=== PATIENT | female | born 1950 | race Caucasian/White ===

== ENCOUNTER 2023-06-08 13:04 | Day surgery (SDC) | payer MEDICARE ==
--- NOTE | 2023-06-07 13:02 | HP ---
HISTORY AND PHYSICAL DATE OF SURGERY: 06/08/2023. HISTORY OF PRESENT ILLNESS: Nicole Fitzgerald is a 72-year-old patient, who was seen with symptomatic left knee osteoarthritis. We discussed the options regarding treatment. She elected to proceed with left total knee arthroplasty. Consent obtained. Medical clearance was provided by Dr. Jose G Grijalva. PAST MEDICAL HISTORY: Hypertension and hypothyroidism. PAST SURGICAL HISTORY: Right total knee arthroplasty, left shoulder arthroscopy, and tonsillectomy. DAILY MEDICATIONS: 1. Levothyroxine. 2. Losartan. 3. Pantoprazole. ALLERGIES: None. SOCIAL HISTORY: She denies tobacco use. PHYSICAL EVALUATION OF THE LEFT KNEE: Range of motion is 0 to 125 degrees. Tenderness along the medial and lateral joint lines. Crepitance along the lateral patellofemoral compartments with range of motion. Pain with patellofemoral compression. Ligaments are stable. Hip rotation is without pain. Distal neurovascular exam is intact. IMAGING STUDIES: Left knee radiographs revealed severe osteoarthritis. IMPRESSION: 1. Left knee osteoarthritis. 2. Hypertension. 3. Hypothyroidism. PLAN: Left total knee arthroplasty. MMODL / IJN: [id number] /
[~2023-06-08 13:04] MED LIST: HYDROmorphone 0.5 MG/0.5 ML SYRINGE IVP PRN; LIDOCAINE 1% (10MG/ML) FOR IV START INTRADERMA PRN; TRANEXAMIC 1,000 MG/100ML-NACL 1,000 MG in SALINE 1 100ML.BAG IVPB PRN
[2023-06-08] MEDS: LACTATED RINGERS 1,000 ML IV SCH ×2 (13:19→18:59)
[2023-06-08] MEDS: ACETAMINOPHEN TAB 500 MG TAB PO PRN (13:56)
[2023-06-08] MEDS: MELOXICAM 7.5 MG TAB PO PRN (13:56)
[2023-06-08] MEDS: DEXAMETHASONE SOD PHOSPHATE 4 MG/ML 1 ML VIAL IVP ONE (13:56)
[2023-06-08] MEDS: ONDANSETRON 4 MG/2 ML VIAL IVP ONE (13:56)
[2023-06-08] MEDS: MIDAZOLAM 2 MG/2 ML VIAL IVP ONE (14:25)
[2023-06-08] MEDS ORDERED: PROPOFOL 10 MG/ML 20 ML VIAL IV ONE (15:11)
[2023-06-08] MEDS ORDERED: ROPIVACAINE 5 MG/ML 30 ML VIAL ONE (15:11)
[2023-06-08] MEDS ORDERED: LIDOCAINE 1% INJ 10MG/ML (20 ML MDV) ONE (15:11)
[2023-06-08] MEDS ORDERED: ePHEDrine 50 MG/ML 1 ML VIAL ONE (15:11)
[2023-06-08] MEDS ORDERED: TRANEXAMIC 1,000 MG/100ML-NACL PREMIX BAG ONE (15:11)
[2023-06-08] MEDS ORDERED: DEXAMETHASONE SOD PHOSPHATE 4 MG/ML 1 ML VIAL ONE (15:11)
[2023-06-08] MEDS ORDERED: MIDAZOLAM 2 MG/2 ML VIAL ONE (15:11)
[2023-06-08] MEDS: ceFAZolin 1,000 MG in SODIUM CHLORIDE 0.9% 1,000 ML IRRIGATION ONE (15:38)
[2023-06-08] MEDS: LACTATED RINGERS 1,000 ML IV ONE (16:05)
[2023-06-08] MEDS ORDERED: ONDANSETRON 4 MG/2 ML VIAL IVP PRN (16:55)
[2023-06-08] MEDS ORDERED: HYDROmorphone 0.5 MG/0.5 ML SYRINGE IVP PRN ×2 (16:55)
[2023-06-08] MEDS ORDERED: HYDROcodone/APAP 5-325MG 1 EACH TAB PO PRN (16:55)
[2023-06-08] MEDS ORDERED: NALOXONE 0.4 MG/ML 1 ML VIAL IV PRN (16:55)
--- NOTE | 2023-06-08 16:55 | P.OP ---
Date of Procedure: 06/08/23 Preoperative Diagnosis: Left knee osteoarthritis Postoperative Diagnosis: Left knee osteoarthritis Procedure(s) Performed: Left total knee arthroplasty Implants: 1. DePuy attune size 6 narrow left cruciate retaining cemented femur 2. DePuy attune size 5 fixed-bearing cemented tibial baseplate 3. DePuy attune size 6 fixed-bearing cruciate retaining 5 mm polyethylene tibial insert 4. DePuy attune 38 mm all polyethylene cemented patella Anesthesia: regional (Adductor canal catheter, iPAQ block), spinal Surgeon: Tolu Lozano Filling Technician #1: Wojciech Araiza Estimated Blood Loss (ml): 40 Pathology: none sent Condition: stable Disposition: PACU Indications for Procedure: 72-year-old patient seen with symptomatic left knee osteoarthritis. After treatment options were discussed, she elected to proceed with total knee arthr oplasty. Operative Findings: See description of procedure Description of Procedure: Patient was taken to the operative suite after having an adductor canal catheter placed by the department of anesthesia. Patient underwent a spinal anesthetic by the department of anesthesia. Patient was given preoperative IV intake antibiotics and TXA. A well-padded tourniquet was placed about the left lower extremity. The lower extremity was then prepped and draped in the normal sterile orthopedic fashion. The extremity was elevated, a tourniquet was in sufflated to 300. A standard anterior incision was made sharply through skin. Dissection was taken down through the subcutaneous soft tissues down to the extensor mechanism. A medial arthrotomy was performed, patella was everted and knee was flexed. There was advanced osteoarthritis noted. I introduced my distal intramedullary femoral drill. I then introduced the distal femoral cutting jig. Wojciech MCINTOSH secured the cutting jig with 2 pins. I held retractors in position while Wojciech MCINTOSH performed the distal femoral resection through the guide area we now removed her distal femoral cutting guide. We now placed our 4-in-1 femoral cutting block and positioned and it was secured with 2 pins by Wojciech MCINTOSH while I held the block in position. The distal femoral finishing was now completed. A proximal tibial cutting guide was positioned. I held the guide in the appropriate position with both hands while Wojciech MCINTOSH inserted stabilizing pins into the guide. Proximal tibial cut was made. We now placed a trial femoral component into position, along with an appropriate size tibial tray and insert. We now took the knee through range of motion and had full extension good flexion and good overall soft tissue balance noted. The patella was everted and stabilized with 2 towel clips held by Wojciech MCINTOSH while I performed a flush with patellar quad tendon utilizing a fresh sawblade. We templated the patella, appropriate drill holes were made. An appropriate trial patella was positioned, knee was taken through full range of motion with the patella tracking very nicely. The trial patella was removed. Drill holes were made through the femoral component. All trial components were removed after marking off the appropriate rotation of the tibia. Retractors we re now positioned along the proximal tibia. An appropriate keel punch was made with the appropriate size tibial guide by myself on Wojciech MCINTOSH assisted by holding retractors. At this point appropriate size implants were chosen and opened. The joint was irrigated copiously with pulse lavage mechanical irrigation. The wound was irrigated with pulse lavage mechanical irrigation. We mixed antibiotic methylmethacrylate. We placed the knee into flexion. We placed multiple retractors assisted by Wojciech MCINTOSH to expose the proximal tibia. Once the methyl methacrylate was ready, the tibial component was cemented into place removing any excess methylmethacrylate form by both myself and Wojciech MCINTOSH. The femoral component was cemented into place removing the removing any excess methylmethacrylate performed by both myself and Wojciech MCINTOSH. We then inserted the appropriate size polyethylene tibial insert. We made sure that it was locked into position. We took the knee into full extension, and then back in a flexion making sure we had removed any excess methylmethacrylate. The patellar component was then cemented down and secured with clamp. Excess methylmethacrylate removed. We kept the knee in full extension, patellar clamp in position until methylmethacrylate had hardened. Once it had hardened the patellar clamp was removed. The knee was taken through full range of motion. The patella tracked nicely. There was good soft tissue balancing. The tourniquet was now released. Additional hemostasis was achieved via electrocautery. A second gram of TXA was given. The wound again was irrigated with pulse lavage mechanical irrigation. The extensor mechanism was repaired with Ethibond suture. We checked the repair with range of motion and it was stable. The subcutaneous soft tissues were repaired with Vicryl in layers. The skin was approximated with pernio/Dermabond. Sterile dressings were applied followed by loose web roll and Poncho bandage. The patient was transferred to a bed, and taken to recovery in stable and satisfactory condition. Wojciech MCINTOSH assisted with this complex procedure.
[2023-06-08] MEDS: ROPIVACAINE 1,100 MG, SODIUM CHLORIDE 0.9% 500 ML 330 ML, EMPTY PAIN BALL 1 EACH MISCELLANE PRN (17:45)
--- NOTE | 2023-06-08 17:48 | XR ---
EXAMINATION TYPE: XR knee limited LT DATE OF EXAM: 06/08/2023 5:32 PM CLINICAL INDICATION:Female, 72 years old with history of Evaluation for Postop abnormality and alignm ent; [facility] COMPARISON: None. TECHNIQUE: XR knee limited LT; examined in Frontal, lateral and oblique projections. FINDINGS: Status post total knee arthroplasty changes with hardware in appropriate alignment and in tact. No evidence of fracture. Subcutaneous lucencies and lucencies within the joint consistent with surgical changes. IMPRESSION: Status post total knee arthroplasty changes with hardware intact and appropriate alignment. No fractu res identified.
[2023-06-08] MEDS: HYDROmorphone 0.5 MG/0.5 ML SYRINGE IVP PRN (18:55)
[2023-06-08] MEDS: ENOXAPARIN 30 MG/0.3 ML SYRINGE SQ SCH (19:44)
[2023-06-08] MEDS: SENNOSIDES-DOCUSATE SODIUM 1 EACH TAB PO SCH (19:44)
[2023-06-08] MEDS: HYDROcodone/APAP 7.5-325MG 1 EACH TAB PO PRN (20:47)
[2023-06-09 08:03] VITALS: BP 128/72; PULSE 83; RESP 18; TEMP 97.5
[2023-06-09] MEDS: LOSARTAN 50 MG TAB PO SCH (09:20)
[2023-06-09] MEDS: PANTOPRAZOLE 40 MG/10 ML VIAL IVP SCH (09:21)
[2023-06-09] MEDS: LACTOBACILLUS ACIDOPHILUS/PECT 1 EACH CAPSULE PO SCH (09:21)
--- NOTE | 2023-06-09 10:04 | P.DS ---
Providers Date of admission: 06/08/2023 Expected date of discharge: 06/09/23 Attending physician: Tolu Lozano Consults: 06/08/23 16:55 Consult Physician Routine Consulting Provider: Jose G Grijalva Reason/Comments: Medical management Do you want consulting provider notified?: Yes Primary care physician: Jose G Grijalva Hospital Course: Date of admission: 06/08/2023 Date of discharge: 06/09/2023 Admission diagnosis: left knee osteoarthritis Discharge diagnosis: same Attending physician: Dr. Lozano Surgical procedures: left total knee arthroplasty Brief history: Patient is a 72-year-old female with a history of progressive primary left knee osteoarthritis. At this point patient has failed conservative treatment measures and has opted to proceed with a elective left total knee arthroplasty. Hospital course: Details of patient's surgery can be found in operative report. Patient tolerated the procedure well and was subsequently transported to orthopedic floor. Patient's orthopeidc and medical care was provided daily. Patient had daily laboratory tests performed for evaluation of overall blood counts. Patient had daily physical therapy to include strengthening range of motion as well as education with walker ambulation. Patient was treated with Lovenox for their postoperative DVT prophylaxis during their inpatient stay. Patient was noted to have a relatively uneventful postoperative course. Patient reported satisfactory pain control with oral pain medications by postoperative day 1. Patient showed satisfactory progress with physical therapy. Patient moved steadily through the program and had no difficulty meeting the goals by postoperative day 1. Given patient's otherwise satisfactory course and having met physical therapy goals, plan is to discharge patient home with health services on postoperative day 1. Discharge condition/disposition: Patient will be discharged home with health services in stable condition. Discharge medications: Instructions are given on resumption of patient's normal daily medications per primary care recommendation, in addition patient will be prescribed [place]; senna; aspirin 81 mg twice a day 30 days Discharge instructions: 1. Wound care and infection precautions, keep incision dry and covered while showering, no lotions, creams, moisturizers. No soaking, tubs, pools, hottubs. Do not scrub over the incision. 2. Weight-bear [as tolerated] with walker / cane until follow-up. 3. Ice and elevate when necessary. Do not exceed 20 minutes per hour with ice pack. 4. Utilize compression sleeve until seen at first follow up appointment. 5. Visiting nursing care. 6. Home physical therapy including home CPM. 7. Pain meds and anticoagulants per prescription. 8. Pain medication has potential to cause constipation. Increase oral fluid and fiber intake. Contact primary care provider if you have not had a bowel movement within 48 hours after discharge 9. No anti-inflammatory medication until discussed at first post operative visit, this including Motrin, Aleve, Mobic, Diclofenac. 10. Follow up in office at 2 weeks postop with Kai Davis PA-C / Wojciech Araiza PA-C 11. Follow up with your primary care doctor 7-10 days after discharge. 12. Contact [facility] with any questions, . keep incision clean, dry, intact. While showering, cover silver foam dressing with saran wrap. Keep silver foam dressing on until 06/15/2023. Dressing may be removed on 06/15/2023. Once dressing is removed it is okay shower directly over incision once dressing is removed. Assessment: left knee osteoarthritis Procedures: left total knee arthroplasty Patient Condition at Discharge: Good Plan - Discharge Summary Discharge Rx Participant: No New Discharge Prescriptions: New Sennosides/Docusate Sodium [Senna Plus 8.6-50 mg Softgel] 1 each PO DAILY #20 capsule Aspirin [Adult Low Dose Aspirin EC] 81 mg PO BID #60 tab HYDROcodone/APAP 7.5-325MG [[place] 7.5-325] 1 - 2 tab PO Q6HR PRN #36 tab PRN Reason: Pain No Action Losartan Potassium 100 mg PO DAILY Uti Essentials(Unk) 1 tab PO DAILY Levothyroxine Sodium 25 mcg PO DAILY Pantoprazole Sodium 40 mg PO DAILY Vit D3(Unk) 1 tab PO DAILY Probiotic(Unk) 1 tab PO DAILY Discharge Medication List Levothyroxine Sodium 25 mcg PO DAILY 05/29/23 [History] Losartan Potassium 100 mg PO DAILY 05/29/23 [History] Pantoprazole Sodium 40 mg PO DAILY 05/29/23 [History] Probiotic(Unk) 1 tab PO DAILY 05/29/23 [History] Uti Essentials(Unk) 1 tab PO DAILY 05/29/23 [History] Vit D3(Unk) 1 tab PO DAILY 05/29/23 [History] Aspirin [Adult Low Dose Aspirin EC] 81 mg PO BID #60 tab 06/09/23 [Rx] HYDROcodone/APAP 7.5-325MG [[place] 7.5-325] 1 - 2 tab PO Q6HR PRN #36 tab 06/09/23 [Rx] Sennosides/Docusate Sodium [Senna Plus 8.6-50 mg Softgel] 1 each PO DAILY #20 capsule 06/09/23 [Rx] Follow up Appointment(s)/Referral(s): [facility],Equipment [NON-STAFF] - As Needed (Please call [facility] once home to arrange delivery of the Continuous Passive Motion (CPM) machine. ) Andrew Davis, PAC [PHYSICIAN MARKET RISK ANALYST] - 2 Weeks Patient Instructions/Handouts: Knee Replacement (DC), Knee Replacement (GEN) Activity/Diet/Wound Care/Special Instructions: Discharge instructions: 1. Wound care and infection precautions, keep incision dry and covered while showering, no lotions, creams, moisturizers. No soaking, tubs, pools, hottubs. Do not scrub over the incision. 2. Weight-bear as tolerated with walker / cane until follow-up. 3. Ice and elevate when necessary. Do not exceed 20 minutes per hour with ice pack. 4. Utilize compression sleeve until seen at first follow up appointment. 5. Visiting nursing care. 6. Home physical therapy including home CPM. 7. Pain meds and anticoagulants per prescription. 8. Pain medication has potential to cause constipation. Increase oral fluid and fiber intake. Contact primary care provider if you have not had a bowel movement within 48 hours after discharge 9. No anti-inflammatory medication until discussed at first post operative visit, this including Motrin, Aleve, Mobic, Diclofenac. 10. Follow up in office at 2 weeks postop with Kai Davis PA-C / Wojciech Araiza PA-C 11. Follow up with your primary care doctor 7-10 days after discharge. 12. Contact [facility] with any questions, . keep incision clean, dry, intact. While showering, cover silver foam dressing with saran wrap. Keep silver foam dressing on until 06/15/2023. Dressing may be removed on 06/15/2023. Once dressing is removed it is okay shower directly over incision once dressing is removed. Discharge Disposition: HOME WITH HOME HEALTH SERVICES
[2023-06-09 11:02] LABS: Basophils # (A) 0 X 10*3/uL (0.00-0.10); Basophils % (A) 0 %; Eosinophils # (A) 0 X 10*3/uL (0.04-0.35); Eosinophils % (A) 0 %; HCT 39.1 % (37.2-46.3); HGB 12.8 g/dL (12.0-15.0); Lymphocytes # (A) 0.65 X 10*3/uL (0.90-5.00); Lymphocytes % (A) 15.1 %; MCH 30.8 pg (27.0-32.0); MCHC 32.7 g/dL (32.0-37.0); Mean Platelet Volume 10.6 FL (9.5-12.2); Monocytes # (A) 0.38 X 10*3/uL (0.20-1.00); Monocytes % (A) 8.8 %; NRBC Per 100 WBC 0 X 10*3/uL (0.00-0.01); Neutrophils # (A) 3.27 X 10*3/uL (1.80-7.70); Neutrophils % (A) 75.9 %; Platelet Count 172 X 10*3/uL (140-440); RBC 4.16 X 10*6/uL (4.10-5.20); RDW 12.7 % (11.5-14.5); WBC 4.31 X 10*3/uL (4.50-10.00)
--- NOTE | 2023-06-09 11:06 | P.PN ---
Progress Note - Text 06/09/23 642am 72-year-old female status post total knee replacement by Dr. Lozano patient has an On-Q pump for postop pain control. If she is with a VAS of 3 . Dressing clean dry and intact. Plan to continue On-Q pump infusion
--- NOTE | 2023-06-09 11:10 | P.ANPRN ---
Procedure Note - Anesthesia - Nerve Block Performed Left Adductor Canal Infusion Time Out Performed: Yes Date of Procedure: 06/08/23 Procedure Start Time: 14:24 Procedure Stop Time: 14:36 Location of Patient: PreOp Indication: Acute Post-Operative Pain, Requested by Surgeon Sedation Type: Sedate with meaningful contact maintained Preparation: Sterile Prep, Sterile Dressing Position: Supine Catheter: Indwelling Needle Types: Pajunk Needle Gauge: 21 Ultrasound used to visualize needle placement: Yes Ultrasound used to observe medication spread: Yes Blood Aspirated: No Pain Paresthesia on Injection Noted: No Resistance on Injection: Normal Image Stored and Saved: Yes Events: Uneventful and Well Tolerated (Ropivacaine 0.5% 20 cc plus dexamethasone 4 mg)
--- NOTE | 2023-06-09 11:11 | P.ANPRN ---
Procedure Note - Anesthesia - Nerve Block Performed Left iPack Single Time Out Performed: Yes Date of Procedure: 06/08/23 Procedure Start Time: 14:37 Procedure Stop Time: 14:40 Location of Patient: PreOp Indication: Acute Post-Operative Pain, Requested by Surgeon Sedation Type: Sedate with meaningful contact maintained Preparation: Sterile Prep Position: Supine Needle Types: Pajunk Needle Gauge: 21 Ultrasound used to visualize needle placement: Yes Ultrasound used to observe medication spread: Yes Blood Aspirated: Yes Pain Paresthesia on Injection Noted: Yes Resistance on Injection: Normal Image Stored and Saved: Yes Events: Uneventful and Well Tolerated (Ropivacaine 0.5% 25 cc plus dexamethasone 4 mg)
--- NOTE | 2023-06-09 12:34 | P.PN ---
Subjective Progress Note Date: 06/09/23 Principal diagnosis: left knee osteoarthritis patient was seen at bedside this morning lying semirecumbent position with legs elevated and dressing present over anterior left knee. Patient says she just finished working with physical therapy and is able to walk the gallo and up-and- down stairs. Patient says she is looking forward to going home later today. Patient says she does have a walker home. Patient says she has urinated since surgery without issue. Patient says she has not had a bowel movement yet, however, patient says she has been passing gas. Patient denies chest pain, fever, shortness of breath, nausea, vomiting, change in vision, loss of bowel/bladder control. Objective - Vital Signs Vital signs: Vital Signs Temp 97.5 F L 06/09/23 07:28 Pulse 83 06/09/23 07:28 Resp 18 06/09/23 07:28 BP 128/72 06/09/23 07:28 Pulse Ox 94 L 06/09/23 07:28 FiO2 Intake & Output 06/08/23 06/09/23 06/09/23 18:59 06:59 18:59 Intake Total 1551 Output Total 40 500 Balance 1511 -500 Weight 93.8 kg Intake: IV 1551 Output: Urine 500 Estimated Blood Loss 40 Other: Voiding Method External Catheter - Exam Left knee: incision is clean, dry, and intact. The silver foam dressing is in good condition. There is minimal soft tissue swelling and ecchymosis surrounding the medial and lateral aspects of the incision. Calf is soft, no tenderness with palpation. Plantar flexion, dorsiflexion, EHL, FHL are intact. Sensory exam to light touch throughout the extremity is intact, dorsal pedis pulses 2+. - Labs CBC & Chem 7: 06/09/23 06:32 Assessment and Plan Assessment: 1. left knee osteoarthritis - Postoperative day #1 status post left total knee arthroplasty Plan: 1. left knee osteoarthritis - left total knee arthroplasty performed yesterday, 06/08/2023. Patient stable at bedside this morning. Patient did do well with therapy this morning. Patient does have a walker for home. Discharge home today with health services. 2. Appreciate medical management 3. Pain management - norco 4. GI prophylaxis - senna 5. DVT prophylaxis - Lovenox in hospital. Going home with aspirin 81 mg twice a day 30 days 6. PT/OT - weightbearing as tolerated with walker as needed 7. Encourage incentive spirometer use 8. Discharge planning - home today with health services Time with Patient: Less than 30
[2023-06-09] MEDS: MULTIVITAMINS, THERA 1 EACH TAB PO SCH (13:02)
--- NOTE | 2023-06-09 13:53 | P.CONS ---
History of Present Illness - Reason for Consult Consult date: 06/10/23 Medical management Requesting physician: Tolu Lozano - Chief Complaint Left knee osteoarthritis - History of Present Illness This is a pleasant 72-year-old female with with past medical history significant for gastroesophageal reflux disease, hypertension, hypothyroidism, former nicotine dependence left knee osteoarthritis, failed conservative treatment, status post left total knee arthroplasty. Tolerated procedure well. Pain controlled. Passing flatus. PT pending. Denies chest pain, palpitations or shortness of breath. Maintaining O2 sats in the 90s on room air. Vital signs stable. afebrile. Review of Systems Constitutional: Denied any fever or chills. Cardio vascular: denied any chest pain, palpitations Gastrointestinal denied any nausea vomiting Pulmonary: Denied any shortness of breath cough Neurologic denied any new focal deficits ROS Statement: Those systems with pertinent positive or pertinent negative responses have been documented in the HPI. ROS Other: All systems not noted in ROS Statement are negative. Past Medical History Past Medical History: GERD/Reflux, Hypertension, Thyroid Disorder Additional Past Medical History / Comment(s): urinary incontinence, lft shoulder dislocation after a fall in 2021, History of Any Multi-Drug Resistant Organisms: None Reported Past Surgical History: Joint Replacement, Orthopedic Surgery, Tonsillectomy Additional Past Surgical History / Comment(s): rotator cuff lft, rt knee replaced 2020, Past Anesthesia/Blood Transfusion Reactions: No Reported Reaction Past Psychological History: No Psychological Hx Reported Smoking Status: Former smoker Past Alcohol Use History: None Reported Additional Past Alcohol Use History / Comment(s): quit 2012, 1 ppk/day/50 plus yrs Past Drug Use History: None Reported - Past Family History Father Family Medical History: No Reported History Medications and Allergies Home Medications Medication Instructions Recorded Confirmed Type Levothyroxine Sodium 25 mcg PO DAILY 05/29/23 06/08/23 History Losartan Potassium 100 mg PO DAILY 05/29/23 06/08/23 History Pantoprazole Sodium 40 mg PO DAILY 05/29/23 06/08/23 History Probiotic(Unk) 1 tab PO DAILY 05/29/23 06/08/23 History Uti Essentials(Unk) 1 tab PO DAILY 05/29/23 06/08/23 History Vit D3(Unk) 1 tab PO DAILY 05/29/23 06/08/23 History Aspirin [Adult Low Dose Aspirin EC] 81 mg PO BID #60 tab 06/09/23 Rx HYDROcodone/APAP 7.5-325MG [[place] 1 - 2 tab PO Q6HR PRN #36 tab 06/09/23 Rx 7.5-325] Sennosides/Docusate Sodium [Senna 1 each PO DAILY #20 capsule 06/09/23 Rx Plus 8.6-50 mg Softgel] Allergies Allergy/AdvReac Type Severity Reaction Status Date / Time No Known Allergies Allergy Verified 06/08/23 13:38 Physical Exam Vitals: Vital Signs Temp Pulse Resp BP Pulse Ox 06/09/23 07:28 97.5 F L 83 18 128/72 94 L 06/09/23 04:56 97.4 F L 85 12 138/79 95 06/08/23 23:40 97.8 F 80 13 127/74 95 06/08/23 22:47 97.6 F 85 13 132/84 95 06/08/23 20:00 97.5 F L 89 13 138/84 93 L 06/08/23 17:33 72 16 127/62 95 06/08/23 17:15 73 16 111/55 99 06/08/23 17:00 97.0 F L 81 16 123/65 99 06/08/23 14:42 68 16 121/58 98 Intake and Output 06/08/23 06/09/23 06/09/23 22:59 06:59 14:59 Intake Total 1051 Output Total 40 500 Balance 1011 -500 Intake: IV 1051 Output: Urine 500 Estimated Blood Loss 40 Other: Voiding Method External Catheter Toilet # Voids 1 Weight 93.8 kg PHYSICAL EXAM: VITAL SIGNS: [As above] GENERAL: Pleasant, alert and oriented x 3, sitting up in bed, no acute distress HEENT: Normocephalic, conjunctivae normal. eyes normal. NECK: Supple, no JVD. CARDIOVASCULAR: S1, S2 regular.No murmur RESPIRATION: Unlabored, equal air entry, clear to auscultation . ABDOMEN: Soft, nondistended, nontender . No guarding. no masses palpable. No ascites, No hepatosplenomegaly.Bowel sounds heard. LEGS: Left lower extremity dressing clean dry and intact, minimal edema, no calf tenderness, positive DP pulse NERVOUS SYSTEM: Cranial N 2-12 grossly normal. No focal deficits. Strength and sensation grossly intact. Skin: Warm and dry, no rash Results CBC & Chem 7: 06/09/23 06:32 Labs: Abnormal Lab Results - Last 24 Hours (Table) 06/09/23 Range/Units 06:32 WBC 4.31 L (4.50-10.00) X 10*3/uL Lymphocytes # 0.65 L (0.90-5.00) X 10*3/uL Eosinophils # 0 L (0.04-0.35) X 10*3/uL Assessment and Plan Assessment: Left knee osteoarthritis, status post left total knee osteoarthritis Hypothyroidism Hypertension Gastroesophageal reflux disease Former nicotine dependence Plan: Continue on current medication regimen ,monitoring and symptomatic treatment. Aggressive pulmonary toileting with incentive spirometer reinforced; currently up to 1400. Pain management/DVT prophylaxis as per primary. T pending. Discharge planning in progress for today as per orthopedic surgery. Follow-up with primary in 1 to 2 weeks .thank you for the consult. The impression and plan of care has been dictated as directed. : I performed a history and examination of this patient, discussed the same with the dictator. I agree with the dictator's note ,documented as a scribe. Any additional findings or plans will be noted.
[2023-06-10] MEDS ORDERED: LEVOTHYROXINE 25 MCG TAB PO SCH (06:30)
== END 2023-06-09 13:20 | disposition home health service (06) ==
LOC: OR 13:04 → 4SSUR 17:06 → OR 06-09 13:20
PROVIDERS: ATTEND Orthopaedic Surgery
DX: M17.12 Unilateral primary osteoarthritis, left knee (principal); G89.18 Other acute postprocedural pain; I10 Essential (primary) hypertension; E03.9 Hypothyroidism, unspecified; Z87.891 Personal history of nicotine dependence; Z79.890 Hormone replacement therapy; Z79.899 Other long term (current) drug therapy; Z79.82 Long term (current) use of aspirin; K21.9 Gastro-esophageal reflux disease without esophagitis
CPT/HCPCS: 97161; 64999; 64448; 85025; 73560; 27447; C1776; C1713 ×2; C1751; J2250; J1100; J0690 ×3; J2405; J1650 ×2; J2795; C9113; J1170

== ENCOUNTER → 2023-12-31 | Outpatient (CLI) | payer MEDICARE ==
--- NOTE | 2024-01-04 10:25 | MM ---
Reason for Exam: Screening (asymptomatic). Last mammogram was performed 5 year(s) and 3 month(s) ago. Patient History: Menarche at age 16. First Full-Term at age 19. Postmenopausal. Risk Values: Nimo 5 year model risk: 1.2%. NCI Lifetime model risk: 3.0%. Prior Study Comparison: 04/26/2014 Bilateral Screening Mammogram, [facility]. 04/28/2014 Right Diagnostic Mammogram, [facility]. 09/16/2018 Bilateral Screening Mammogram, [place]. Tissue Density: There are scattered areas of fibroglandular density. Findings: Analyzed By CAD. Right breast: There is no suspicious group of microcalcifications or new suspicious mass. Left breast: There is no suspicious group of microcalcifications or new suspicious mass. Overall Assessment: Negative, BI-RAD 1 Management: Screening Mammogram of both breasts in [address] [facility] will attempt to contact patient to return for supplemental views and ultrasound if indicated. Patient should continue monthly self-breast exams. A clinical breast exam by your physician is recommended on an annual basis. This exam should not preclude additional follow-up of suspicious palpable abnormalities. Note on Nimo scores and lifetime risk: 1. A Nimo score greater than 3% is considered moderate risk. If this is the case, consider specialist referral to assess eligibility for a risk reducing agent. 2. If overall lifetime risk for the development of breast cancer is 20% or higher, the patient may qualify for future screening with alternating mammogram and breast MRI. [facility], , 01/04/2024 10:22 AM. Electronically signed and approved by: Indio Yañez DO
== END | disposition home or self-care (01) ==
LOC: RADMAMWWP 10:43
PROVIDERS: ATTEND Family Medicine
CPT/HCPCS: 77063; 77067

== ENCOUNTER → 2024-07-06 | Outpatient (CLI) | payer MEDICARE, OTHER ==
[2024-07-06 15:56] LABS: ALT 25 U/L (8-44); AST 25 U/L (13-35); Albumin 4.5 g/dL (3.8-4.9); Albumin/Globulin Ratio 1.55 Ratio (1.60-3.17); Alkaline Phosphatase 68 U/L (41-126); BUN/Creat Ratio 17.88 Ratio (12.00-20.00); Blood Urea Nitrogen 14.3 mg/dL (9.0-27.0); Calcium 9.9 mg/dL (8.7-10.3); Carbon Dioxide 24.8 mmol/L (21.6-31.8); Chloride 103 mmol/L (96-109); Globulin 2.9 g/dL (1.6-3.3); Glucose 121 mg/dL (70-110); Potassium 4.5 mmol/L (3.5-5.5); Sodium 140 mmol/L (135-145); Total Bilirubin 0.5 mg/dL (0.3-1.2); Total Protein 7.4 g/dL (6.2-8.2)
[2024-07-06 18:02] LABS: NT-Pro-B-Type Natriuretic Pept 77 pg/mL (0-125)
== END | disposition home or self-care (01) ==
LOC: LABWHC1 10:08
PROVIDERS: ATTEND Internal Medicine Interventional Cardiology
DX: R06.09 Other forms of dyspnea (principal)
CPT/HCPCS: 36415; 80053; 83880

== ENCOUNTER 2024-08-25 08:22 | Day surgery (SDC) | payer MEDICARE, OTHER ==
[2024-08-23 15:32] VITALS: BMI 39.3
[~2024-08-25 08:22] MED LIST changes: -HYDROmorphone 0.5 MG/0.5 ML SYRINGE IVP PRN; -TRANEXAMIC 1,000 MG/100ML-NACL 1,000 MG in SALINE 1 100ML.BAG IVPB PRN
[2024-08-25] MEDS: IV FLUID CONTINUATION 1,000 ML IV ONE (08:41)
[2024-08-25] MEDS: LACTATED RINGERS 1,000 ML IV SCH (09:10)
[2024-08-25 09:13] VITALS: TEMP 97.7
[2024-08-25] MEDS ORDERED: PROPOFOL 10 MG/ML 20 ML VIAL IV ONE (09:17)
--- NOTE | 2024-08-25 10:12 | P.PCN ---
Date of Procedure: 08/25/24 Preoperative Diagnosis: Change in bowel habits Postoperative Diagnosis: Ascending colon polyp Transverse colon polyp Rectal polyp Procedure(s) Performed: Colonoscopy with forcep polypectomy Anesthesia: MAC Surgeon: Omar Vega Pathology: other (Ascending colon polyp, transverse colon polyp, rectal polyp) Condition: stable Disposition: same day Indications for Procedure: 74-year-old presents for colonoscopy. She complains of some soft stool. Denies blood in her stool. Has history of diverticulosis. Risks, benefits and alternatives were provided to the patient. All questions answered. Operative Findings: Transverse colon polyp, ascending colon polyp, rectal polyp Description of Procedure: The patient was brought to the endoscopy suite and placed in left lateral decubitus position and adequate sedation was achieved using conscious sedation. Digital rectal exam was performed and mild internal hemorrhoids were palpated. An endoscope was then placed in the rectum and advanced to the cecum as identified by landmarks including the appendiceal orifice and the ileocecal valve. The prep was good. The colonoscope was then slowly withdrawn, examining for any mucosal abnormalities. The cecum, ascending, transverse, descending and sigmoid colon were visualized adequately. There were no large neoplastic lesions noted throughout the colon. Multiple polyps were encountered. The first was noted in the ascending colon. This was removed with forcep polypectomy. Hemostasis maintained. Second was noted in the transverse colon. This was also removed with forcep polypectomy. Hemostasis maintained. Final 1 was noted in the rectum and this was removed with forcep polypectomy. Hemostasis was maintained. Significant amount of diverticulosis was noted in the sigmoid colon. Retroflexion was performed in the rectum and internal hemorrhoid. Excess air was removed, the colonoscope withdrawn and the procedure terminated. The patient was then transferred to the recovery unit in stable condition. Repeat colonoscopy should be performed in 3 years.
[2024-08-25 10:17] VITALS: BP 115/75; PULSE 86; RESP 15
== END 2024-08-25 10:55 | disposition home or self-care (01) ==
LOC: ORWHC2ENDO 08:22
PROVIDERS: ATTEND Surgery
DX: D12.2 Benign neoplasm of ascending colon (principal); D12.3 Benign neoplasm of transverse colon; D12.8 Benign neoplasm of rectum; I10 Essential (primary) hypertension; E78.5 Hyperlipidemia, unspecified; K21.9 Gastro-esophageal reflux disease without esophagitis; Z79.899 Other long term (current) drug therapy; Z79.82 Long term (current) use of aspirin
CPT/HCPCS: 88305; 45380; J2704

== ENCOUNTER → 2024-08-29 | Outpatient (CLI) | payer MEDICARE ==
[2024-08-29 10:30] LABS: HCT 40.7 % (37.2-46.3); HGB 13.1 g/dL (12.0-15.0); MCH 31.1 pg (27.0-32.0); MCHC 32.2 g/dL (32.0-37.0); MCV 96.7 FL (80.0-97.0); Mean Platelet Volume 10.9 FL (9.5-12.2); NRBC Per 100 WBC 0 X 10*3/uL (0.00-0.01); Platelet Count 176 X 10*3/uL (140-440); RBC 4.21 X 10*6/uL (4.10-5.20); RDW 12.9 % (11.5-14.5); WBC 3.01 X 10*3/uL (4.50-10.00)
[2024-08-29 10:33] LABS: Blood Urea Nitrogen 17.6 mg/dL (9.0-27.0); Chloride 107 mmol/L (96-109); Potassium 4.3 mmol/L (3.5-5.5); Sodium 140 mmol/L (135-145)
== END | disposition home or self-care (01) ==
LOC: LABPAT 07:53
PROVIDERS: ATTEND Internal Medicine Interventional Cardiology
DX: Z01.812 Encounter for preprocedural laboratory examination (principal); R94.39 Abnormal result of other cardiovascular function study
CPT/HCPCS: 80051; 82565; 84520; 85027

== ENCOUNTER 2024-09-01 10:03 | Day surgery (SDC) | payer MEDICARE ==
[~2024-09-01 10:03] MED LIST changes: +ALPRAZolam 0.25 MG TAB PO PRN; +ALPRAZolam 0.5 MG TAB PO PRN; -LIDOCAINE 1% (10MG/ML) FOR IV START INTRADERMA PRN; +NITROGLYCERIN SL TABS 0.4 MG TAB SUBLINGUAL PRN
[2024-09-01] MEDS: ASPIRIN 325 MG TAB PO STA (10:34)
[2024-09-01] MEDS: SODIUM CHLORIDE 0.9% 1,000 ML in EMPTY BAG 1 BAG IV SCH (10:34)
[2024-09-01] MEDS: ATORVASTATIN 80 MG TAB PO STA (10:34)
[2024-09-01 10:38] VITALS: RESP 16; TEMP 98.1
[2024-09-01] MEDS: IV FLUID CONTINUATION 1,000 ML IV ONE (10:38)
[2024-09-01] MEDS: HEPARIN SODIUM,PORCINE (1 ML) 2,500 UNIT in SODIUM CHLORIDE 0.9% 250 ML IRRIGATION PRN (12:31)
[2024-09-01] MEDS: HEPARIN SODIUM,PORCINE 10,000 UNIT in SODIUM CHLORIDE 0.9% 1,000 ML IRRIGATION PRN (12:31)
[2024-09-01] MEDS: fentaNYL (PF) 50 MCG/ML 2 ML AMP IVP ONE (12:38)
[2024-09-01] MEDS: LIDOCAINE 1% INJ 10MG/ML (20 ML MDV) SQ ONE (12:40)
[2024-09-01] MEDS: VERAPAMIL SYRINGE (5 MG/10 ML) INTRAARTER ONE (12:43)
[2024-09-01] MEDS: MIDAZOLAM 2 MG/2 ML VIAL IVP ONE (12:43)
[2024-09-01] MEDS: HEPARIN SODIUM 1,000 UN/ML (10ML VL) IVP ONE (12:47)
[2024-09-01] MEDS: IOPAMIDOL-370 100ML BTL INJ ONE (12:54)
[2024-09-01] MEDS ORDERED: RX INFO: IV CONTRAST WAS GIVEN 1 EACH MISC MISCELLANE PRN (12:58)
[2024-09-01] MEDS ORDERED: SODIUM CHLORIDE 0.9% 1,000 ML IV SCH (13:00)
--- NOTE | 2024-09-01 13:03 | P.CARDCATH ---
Date of Procedure: 09/01/24 Description of Procedure: Cardiac Catheterization: The patient is a 74-year-old female with history of hypertension hyperlipidemia who has been complaining of progressive symptoms of dyspnea and had an abnormal MPI with anterior and anterolateral wall ischemia. Recommendations were made regarding cardiac catheterization, the risks and the complications were discussed with the patient who is in full understanding and agreement. 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 Using Xylocaine Anesthesia and modified Seldinger technique, a 6-Angolan sheath was introduced in the right radial artery . Subsequently, selective coronary angiography was performed using a 5-Angolan 3.5 bend Rey catheter. Multiple views of the coronary artery including hemiaxial views were obtained. The 5 Angolan pigtail catheter was used to cross the aortic valve and LVEDP was calculated. Following that, catheter and sheath were removed. Hemostasis was obtained with deployment of vascular band . There was no immediate complication. Patient was returned to room in stable condition. Of note, the patient received a total of 5000 units of intravenous heparin as well as intra-arterial verapamil. Findings: Left main: This is a short size vessel, bifurcating into LAD and left circumflex, left main has no obstructive disease LAD: This is a large size vessel, reaching to the apex with a wraparound apex segment giving rise to 2 diagonal branch, the first 1 is large in caliber. The LAD and its branches have no obstructive disease Left circumflex: This is a large nondominant vessel giving rise to 2 obtuse marginal branch the first 1 is very proximal, the second 1 is tortuous. The left circumflex and its branches have no obstructive disease RCA: This is a large dominant vessel, bifurcating into PDA and PLV, the right coronary artery and its branches have no obstructive disease Left Ventriculogram: Not performed Hemodynamics: There was no gradient across the aortic valve, LVEDP was 10-14 mmHg Conclusion: 1. Normal coronary arteries 2. Right dominance 3. Normal LVEDP Recommendations: I have recommended to continue medical therapy, I see no clear evidence of cardiac etiology for her dyspnea on exertion. The findings and the recommendations were discussed with the patient and the family and they were in full understanding and agreement. Duration of sedation is 13 minutes.
[2024-09-01 16:15] VITALS: BP 124/69; PULSE 71
[2024-09-02] MEDS ORDERED: LEVOTHYROXINE 25 MCG TAB PO SCH (06:30)
[2024-09-02] MEDS ORDERED: LOSARTAN 50 MG TAB PO SCH (09:00)
[2024-09-02] MEDS ORDERED: ATORVASTATIN 40 MG TAB PO SCH (09:00)
== END 2024-09-01 16:18 | disposition home or self-care (01) ==
LOC: CATHCVL 10:03
PROVIDERS: ATTEND Internal Medicine Interventional Cardiology
DX: I34.0 Nonrheumatic mitral (valve) insufficiency (principal); I10 Essential (primary) hypertension; E78.2 Mixed hyperlipidemia; Z82.49 Family history of ischemic heart disease and other diseases of the circulatory system; Z72.0 Tobacco use; Z79.890 Hormone replacement therapy; Z79.899 Other long term (current) drug therapy
CPT/HCPCS: 93458; 99152; J2250; J1644 ×3; J2003; J3010; Q9967